=== PATIENT | female | born 1955 | race Caucasian/White ===

== ENCOUNTER → 2024-07-31 15:17 | Outpatient (REF) | payer MEDICARE, SELFPAY ==
[2024-07-31 16:06] LABS: % Basophils 0.7 % (0-2); % Eosinophils 1.9 % (0-6); % Immature Granulocytes 0.3 % (0-0.5); % Lymphocytes 18.9 % (20.5-51.1); % Monocytes 8.4 % (1.7-9.3); % Neutrophils 69.8 % (42.2-75.2); Absolute Basophils 0.1 10^3/uL (0-0.2); Absolute Eosinophils 0.1 10^3/uL (0-0.7); Absolute Lymphocytes 1.3 10^3/uL (1.2-3.4); Absolute Monocytes 0.6 10^3/uL (0.1-0.6); Absolute Neutrophils 4.7 10^3/uL (1.4-6.5); Hematocrit 38.9 % (37.0-47.0); Hemoglobin 12.9 g/dL (12.0-16.0); Mean Corp Hgb Conc. 33.2 g/dL (33.0-37.0); Mean Corpuscular Hgb 29.6 pg (27.0-31.0); Mean Corpuscular Volume 89.2 fL (81.0-99.0); Mean Platelet Volume 9.5 fL (7.4-10.4); Nucleated Red Blood Cells % 0 %; Platelet Count 292 10^3/uL (130-400); Red Blood Cell Count 4.36 10^6/uL (4.20-5.40); Red Cell Dist. Width 13.6 % (11.5-14.5); White Blood Cell Count 6.8 10^3/uL (4.8-10.8)
[2024-07-31 16:22] LABS: Blood Urea Nitrogen 17 mg/dl (7-17); Calcium 9.5 mg/dl (8.4-10.2); Carbon Dioxide 28 mmol/L (22-30); Chloride 103 mmol/L (98-107); Glucose 85 mg/dl (70-99); Potassium 4.3 mmol/L (3.5-5.1); Sodium 143 mmol/L (135-145); eGFR > 60.00
== END ==
LOC: REG 15:17
PROVIDERS: ATTENDING PHYSICIAN Orthopaedic Surgery; FAMILY PHYSICIAN Internal Medicine
DX: Z01.818 Encounter for other preprocedural examination (principal)
CPT/HCPCS: 36415; 80048; 85025; 93005

== ENCOUNTER 2024-08-29 23:49 | Emergency (ER) | payer MEDICARE, SELFPAY ==
[2024-08-29 23:53] VITALS: BP 190/75
[2024-08-30 00:17] VITALS: BMI 38.6
--- NOTE | 2024-08-30 00:25 | ED.GENMED ---
History of Present Illness
<MEME Christianson - Last Filed: 08/30/24 02:47>
General
Chief Complaint: Bowel Problem
Source: patient
Exam Limitations: none
Time Seen by Provider: 08/30/24 00:07
Nursing documentation reviewed up to this point in time: agreed with
History of Present Illness
History of Present Illness:
Patient is a 69yo F who presents s/p L THR 3 days ago w/ constipation. She reports last BM was Monday (5 days ago). Has been taking Colace 3x/day w/o improvement. States she feels stool stuck in her. Tried using finger to disimpact which release a
small amount. Reports stool that came out was normal small, hard lumps. Notes she did make herself bleed while doing this. She denies N/V/D, chest pain, and SOB. Admits to occasional issues w/ constipation which are usually relieved w/ fiber and
incr water. Reports hip is feeling good and denies any issues.
Past History
<MEME Christianson - Last Filed: 08/30/24 02:47>
Past History
ED Past Medical History: GERD (intermittant) and HTN (on 5 mg Lisinopril)
ED Past Surgical History: None
Social History
Tobacco: Non-smoker
Alcohol: None
Drug: None
Living: with family
Review of Systems
<MEME Christianson - Last Filed: 08/30/24 02:47>
Review of Systems
Constitutional: Denies fever, fatigue or chills
Respiratory: Denies cough or trouble breathing
Cardiac: Denies chest pain or palpitations
ABD/GI: Reports constipated; Denies abdominal pain, nausea, vomiting or diarrhea
Neurological: Denies dizzy or headache
Phy Exam
<MEME Christianson - Last Filed: 08/30/24 02:47>
General Physical Exam
General Presentation: no apparent distress
General age: appears stated age
General Skin: warm and dry
General Habitus: normal
General Mental: alert
Cardiovascular Exam
Cardiovascular Exam: regular rate/rhythm, no edema, no gallop and no murmur
Pulmonary Exam
Pulmonary Exam: lungs clear, no respiratory distress, no rales, no crackles, no rhonchi and no wheezing
Gastrointestinal Exam
Gastrointestinal Exam: normal bowel sounds, non tender, non distended and other (hardness in RLQ)
Neurological Exam
Neurological Exam: alert, oriented x3, no motor deficits, no sensory deficits and speech normal
Course
<Yesi Guy [facility] Last Filed: 08/30/24 02:47>
Orders/Labs/Results
Orders:
Orders
08/30/24 00:14
CR Abdomen - 1 View Urgent
Comment:
Reason For Exam: constipation
08/30/24 01:38
Complete Blood Count/With Diff Urgent
Comprehensive Metabolic Panel Urgent
08/30/24 01:59
Enema- Treatment ONCE
Type: Milk of Molasses
08/30/24 03:06
Phosphate Enema [Fleet Phosphate Enema-Adult] 135 ml RECTAL NOW STA
Abnormal Lab Results
08/30/24
01:38
WBC 12.7 H 10^3/uL
(4.8-10.8)
RBC 3.48 L 10^6/uL
(4.20-5.40)
Hgb 10.3 L g/dL
(12.0-16.0)
Hct 30.6 L %
(37.0-47.0)
Abs Immat Gran (auto) 0.1 H 10^3/uL
(0-0.05)
Absolute Neuts (auto) 10.8 H 10^3/uL
(1.4-6.5)
Absolute Lymphs (auto) 0.9 L 10^3/uL
(1.2-3.4)
Absolute Monos (auto) 0.8 H 10^3/uL
(0.1-0.6)
Immature Gran % 0.7 H %
(0-0.5)
Neutrophils % 85.0 H %
(42.2-75.2)
Lymphocytes % 7.1 L %
(20.5-51.1)
BUN 18 H mg/dl
(7-17)
Glucose 118 H mg/dl
(70-99)
AST 50 H U/L
(14-36)
ALT 45 H U/L
(0-35)
08/30/24 01:38
08/30/24 01:38
Vital Signs
Initial and Last Documented VS:
Initial Vital Signs
Temp Pulse Resp BP Pulse Ox
98.1 F 89 20 190/75 99
08/29/24 23:53 08/29/24 23:53 08/29/24 23:53 08/29/24 23:53 08/29/24 23:53
Last Documented Vital Signs
Temp Pulse Resp BP Pulse Ox
98.1 F 87 15 167/81 99
08/29/24 23:53 08/30/24 04:15 08/30/24 04:15 08/30/24 04:07 08/30/24 04:15
<William Puentes, - Last Filed: 08/30/24 05:16>
Orders/Labs/Results
Orders:
Orders
08/30/24 00:14
CR Abdomen - 1 View Urgent
Comment:
Reason For Exam: constipation
08/30/24 01:38
Complete Blood Count/With Diff Urgent
Comprehensive Metabolic Panel Urgent
08/30/24 01:59
Enema- Treatment ONCE
Type: Milk of Molasses
08/30/24 03:06
Phosphate Enema [Fleet Phosphate Enema-Adult] 135 ml RECTAL NOW STA
Abnormal Lab Results
08/30/24
01:38
WBC 12.7 H 10^3/uL
(4.8-10.8)
RBC 3.48 L 10^6/uL
(4.20-5.40)
Hgb 10.3 L g/dL
(12.0-16.0)
Hct 30.6 L %
(37.0-47.0)
Abs Immat Gran (auto) 0.1 H 10^3/uL
(0-0.05)
Absolute Neuts (auto) 10.8 H 10^3/uL
(1.4-6.5)
Absolute Lymphs (auto) 0.9 L 10^3/uL
(1.2-3.4)
Absolute Monos (auto) 0.8 H 10^3/uL
(0.1-0.6)
Immature Gran % 0.7 H %
(0-0.5)
Neutrophils % 85.0 H %
(42.2-75.2)
Lymphocytes % 7.1 L %
(20.5-51.1)
BUN 18 H mg/dl
(7-17)
Glucose 118 H mg/dl
(70-99)
AST 50 H U/L
(14-36)
ALT 45 H U/L
(0-35)
08/30/24 01:38
08/30/24 01:38
Vital Signs
Initial and Last Documented VS:
Initial Vital Signs
Temp Pulse Resp BP Pulse Ox
98.1 F 89 20 190/75 99
11/07/24 23:53 08/29/24 23:53 08/29/24 23:53 08/29/24 23:53 08/29/24 23:53
Last Documented Vital Signs
Temp Pulse Resp BP Pulse Ox
98.1 F 87 15 167/81 99
08/29/24 23:53 08/30/24 04:15 08/30/24 04:15 08/30/24 04:07 08/30/24 04:15
<William Puentes DO - Last Filed: 08/30/24 05:16>
MDM/Problems Addressed
Differential Diagnosis Includes:
Constipation, obstipation, fecal impaction
Chronic conditions affecting care:
Short-term narcotic use
<MEME Christianson - Last Filed: 08/30/24 02:47>
*Critical Care Note
Total Time (30-74mins, 75-104mins- exclusive of procedures): Not Applicable
<William Puentes DO - Last Filed: 08/30/24 05:16>
Update Note
Update Note:
08/30/2024 0305 AM: Attempted to disimpact patient was mostly unsuccessful. In the presence of nursing, we carefully placed patient on her good side. I was able to feel semihard stool with the tip of my finger but I was unable to disimpact. I did
try to loosen it with questionable success. We will try a fleets enema.
08/30/2024 0511 AM: Fleets enemas seem to work. She did have a bowel movement. Patient to be discharged home
ED Attending Note
<MEME Christianson - Last Filed: 08/30/24 02:47>
-
Portions of this chart may have been created with voice recognition software.� Occasional wrong word or��sound alike� substitutions may have occurred due to the inherent limitations of voice recognition software.
<William Puentes, DO - Last Filed: 08/30/24 05:16>
ED Attending Note
Patient seen and examined by attending physician: Yes
I performed the substantive portion of visit, reviewed & personally made and approve the management plan that is documented in note by myself or DAPHNE.: Yes
ED Attending Note:
Pleasant 69-year-old female presents the emergency department with constipation. She had hip replacement surgery on Monday. She states that her last bowel movement was Monday night. She has been taking oxycodone with Colace. She reports no
improvement. She has been passing gas but no stool. She tried a manual disimpaction with no relief. Patient was seen in conjunction with the PA student. I have reviewed and agree with the history and treatment plan presented. On my independent
physical exam, patient is awake, alert, and oriented x3, no acute distress. Abdomen is soft without tenderness to deep or superficial palpation. There are good bowel sounds in all 4 quadrants. Skin is warm and dry. Mentating appropriately.
Moves all 4 extremities.
Discharge Plan
Departure
Patient Disposition: Home (Routine Discharge)
Date of Disposition: 08/30/24
Time of Disposition: 05:12
Condition: Good
Discharge Problem:
Acute constipation, Abdominal pain
Instructions: Constipation, Adult (DC), Abdominal Pain
Prescriptions:
No Action
lisinopril 5 MG tablet
5 mg PO DAILY
Referrals:
[facility] [Outside]
UNKNOWN - PT DOES,NOT KNOW [Family Provider] -
Activity Restrictions/Additional Instructions:
It was a pleasure meeting you and taking part in your care. We hope for your continued healing and wellness.
Please read discharge instructions in their entirety. However, they are for general education and may not describe your exact diagnosis at discharge. Information on your ER visit and medical conditions were discussed with you along with appropriate
follow up information...
If indicated, please take your medications as instructed and indicated on discharge paperwork.
Please schedule a follow up appointment as directed. Call to schedule an appointment
Please return to the emergency department with ANY change in, persisting, or worsening of symptoms. If any of your symptoms do not improve, or persist, or become more severe within 6-12 hours, please return to the emergency department for further
care.
Please return to the emergency department if you develop a headache, neck pain/stiffness, fever greater than 100.4F, chest pain, shortness of breath, persistent nausea, vomiting, slurred speech, difficulty walking, numbness/tingling, weakness, signs
of infection or any other symptoms that are worrisome to you.
If you have any questions or concerns please do not hesitate to call the Hospital at or E-mail me directly at [email or web address]
Interventions
Interventions:
*Risk Screen - Suicide Last Done: 08/29/24 23:59
*General Assessment Last Done: 08/29/24 23:59
*Neglect/Abuse Screening Last Done: 08/29/24 23:53
ED- Fall Risk Assessment Last Done: 08/30/24 00:20
*ED COVID-19 Vaccine History Last Done: 08/29/24 23:59
BI-Htwkri-Aclltphvkl Assessment Last Done: 08/30/24 04:20
Discharge Date and Time
Print Language: SWEDISH
[2024-08-30 01:04] VITALS: BP 152/100
[2024-08-30 01:45] LABS: % Basophils 0.3 % (0-2); % Eosinophils 0.4 % (0-6); % Immature Granulocytes 0.7 % (0-0.5); % Lymphocytes 7.1 % (20.5-51.1); % Monocytes 6.5 % (1.7-9.3); Absolute Eosinophils 0.1 10^3/uL (0-0.7); Absolute Immature Granulocytes 0.1 10^3/uL (0-0.05); Absolute Lymphocytes 0.9 10^3/uL (1.2-3.4); Absolute Monocytes 0.8 10^3/uL (0.1-0.6); Absolute Neutrophils 10.8 10^3/uL (1.4-6.5); Hematocrit 30.6 % (37.0-47.0); Hemoglobin 10.3 g/dL (12.0-16.0); Mean Corp Hgb Conc. 33.7 g/dL (33.0-37.0); Mean Corpuscular Hgb 29.6 pg (27.0-31.0); Mean Corpuscular Volume 87.9 fL (81.0-99.0); Mean Platelet Volume 9.3 fL (7.4-10.4); Nucleated Red Blood Cells % 0 %; Platelet Count 308 10^3/uL (130-400); Red Blood Cell Count 3.48 10^6/uL (4.20-5.40); Red Cell Dist. Width 13.9 % (11.5-14.5); White Blood Cell Count 12.7 10^3/uL (4.8-10.8)
[2024-08-30 01:58] LABS: ALT (SGPT) 45 U/L (0-35); AST (SGOT) 50 U/L (14-36); Albumin 3.7 g/dl (3.5-5.0); Alkaline Phosphatase 125 U/L (38-126); Blood Urea Nitrogen 18 mg/dl (7-17); Calcium 9.1 mg/dl (8.4-10.2); Carbon Dioxide 27 mmol/L (22-30); Chloride 104 mmol/L (98-107); Estimated Creatinine Clearance 107 ml/min; Glucose 118 mg/dl (70-99); Potassium 4.9 mmol/L (3.5-5.1); Sodium 140 mmol/L (135-145); Total Bilirubin 0.7 mg/dl (0.2-1.3); Total Protein 6.6 g/dl (6.3-8.2); eGFR > 60.00
[2024-08-30 04:07] VITALS: BP 167/81
[2024-08-30] MEDS: FLEET PHOSPHATE ENEMA-ADULT 135 ML RECTAL (04:10)
== END 2024-08-30 05:55 | disposition home or self-care (01) ==
LOC: EMR 23:49
PROVIDERS: EMERGENCY PHYSICIAN Student in an Organized Health Care Education/Training Program
DX: K59.09 Other constipation (principal); R10.9 Unspecified abdominal pain; K21.9 Gastro-esophageal reflux disease without esophagitis; I10 Essential (primary) hypertension
CPT/HCPCS: 99283; 74018; 80053; 85025